=== PATIENT | male | born 1935 | race Caucasian/White ===

== ENCOUNTER 2019-01-28 11:06 | Emergency (ER) | payer OTHER, MEDICAID ==
[~2019-01-28] VITALS: Ht 165.1 cm; Wt 80.1 kg
[2019-01-28 11:50] VITALS: Ht 165.1 cm; Wt 80.1 kg
[2019-01-28 12:49] VITALS: BP 132/85
== END 2019-01-28 12:52 | disposition home or self-care (01) ==
LOC: ED 11:06
DX: J11.1 Influenza due to unidentified influenza virus with other respiratory manifestations (principal); I10 Essential (primary) hypertension; Z87.442 Personal history of urinary calculi